=== PATIENT | female | born 1965 | race Caucasian/White ===

== ENCOUNTER 2016-08-09 00:54 | Emergency (ER) | payer OTHER ==
[~2016-08-09] VITALS: Ht 160 cm; Wt 53.0 kg
[~2016-08-09 00:54] MED LIST: AZIT250T94 PO; GUAI120011 PO; IBUP-1542 PO; PRED50TA PO; PROM5SYR2 PO; SODI30SP2 NS
[2016-08-09 00:58] VITALS: Ht 160 cm; Wt 53.0 kg
[2016-08-09] MEDS ORDERED: NAPR-688 PO (01:49)
[2016-08-09] MEDS ORDERED: AMOX1TAB10 PO (01:49)
[2016-08-09] MEDS ORDERED: HYDR-906 PO (01:49)
--- NOTE | 2016-08-09 01:58 | ERD ---
ER Documentation Chief Complaint Date/Time DATE: 08/09/16 TIME: 01:56 Chief Complaint cough, runny nose, nasal congestion HPI This 51-year-old female presents emergency room with cough for 4 days as well as runny nose nasal congestion. She says that usually when this starts she will eventually develop bronchitis if not treated with antibiotics. She is having chills but no fevers. She is eating and drinking well. States that she is otherwise healthy. He is having difficulty sleeping because of her cough. She has had no emesis. ROS All systems reviewed and are negative except as per history of present illness. Medications Home Meds Active Scripts Naproxen* (Naproxen*) 500 Mg Tablet, 500 MG PO BID, #20 TAB Prov:MARSHA SABA DO 08/09/16 Hydrocodone/Acetaminophen (Tyler 5-325 Tablet) 1 Each Tablet, 1 EACH PO Q6, #20 TAB Prov:MARSHA SABA DO 08/09/16 Amoxicillin/Potassium Clav (Amox-Clav 875-125 mg Tablet) 875-125 mg Tab, 1 TAB PO BID, #20 TAB Prov:MARSHA SABA DO 08/09/16 Promethazine HCl/Codeine (Prometh-Codein 6.25-10 mg/5 ml) 5 Ml Syrup, 5 ML PO QHS, #4 OZ Prov:MIKEL BRADY PA-C 12/24/15 Azithromycin* (Zithromax*) 250 Mg Tablet, 250 MG PO DAILY for 5 Days, #6 TAB Prov:MIKEL BRADY PA-C 12/24/15 Prednisone* (Prednisone*) 50 Mg Tablet, 50 MG PO DAILY, #5 TAB Prov:MIKEL BRADY PA-C 12/24/15 Ibuprofen* (Motrin*) 600 Mg Tab, 600 MG PO Q6H Y for PAIN AND OR ELEVATED TEMP, #30 TAB Prov:CAS RENDON NP 12/19/15 Sodium Chloride (Saline Nasal Hamilton) 30 Ml Hamilton, 2 SPRAYS NS Q2H Y for NASAL CONGESTION, #1 BOTTLE Prov:CAS RENDON NP 12/19/15 Guaifenesin (Mucinex) 1,200 Mg Tab.er.12h, 1200 MG PO Q12, #20 TAB Prov:CAS RENDON NP 12/19/15 Allergies Allergies: Coded Allergies: No Known Allergy (Unverified , 12/19/15) PMhx/Soc History of Surgery: Yes (Partial Hysterectomy) Anesthesia Reaction: No Hx Neurological Disorder: No Hx Respiratory Disorders: No Hx Cardiac Disorders: No Hx Psychiatric Problems: No Hx Miscellaneous Medical Probl: Yes (sinus infections) Hx Alcohol Use: No Hx Substance Use: No Hx Tobacco Use: No Smoking Status: Never smoker Physical Exam Vitals Vital Signs Date Time Temp Pulse Resp B/P Pulse Ox O2 Delivery O2 Flow Rate FiO2 08/09/16 00:58 98.4 77 20 124/72 100 Physical Exam Const: [] Mild distress, appears uncomfortable Head: Atraumatic Eyes: Normal Conjunctiva ENT: Normal External Ears, Nose and Mouth., Oropharynx within normal limits , tympanic membranes clear bilaterally Neck: Full range of motion..~ No meningismus. Resp: Clear to auscultation bilaterally, coughs on exam Cardio: Regular rate and rhythm, no murmurs Procedures/MDM Acute bronchitis in a 51-year-old female please believe her request for antibiotics because she does develop bacterial infections is reasonable in this case. She does have significant cough. I am going to discharge her with Augmentin as well as naproxen for anti-inflammatory and a few Tyler for the discomfort she has preventing her from sleep. Primary care follow-up in 2-3 days and return precautions to ER. Departure Diagnosis: Primary Impression: Bronchitis Condition: Stable Patient Instructions: Bronchitis, Antiobiotic Treatment (Adult) Additional Instructions: Call your primary care doctor TOMORROW for an appointment during the next 2-3 days.See the doctor sooner or return here if your condition worsens before your appointment time. MARSHA SABA DO Aug 09, 2016 01:58
== END 2016-08-09 02:10 | disposition home or self-care (01) ==
LOC: FTE 00:54
DX: J20.9 Acute bronchitis, unspecified (principal)
CPT/HCPCS: 99284

== ENCOUNTER 2016-11-04 04:27 | Emergency (ER) | END 2016-11-04 04:56 | disposition home or self-care (01) | DX: R05 Cough (principal); R09.82 Postnasal drip; R40.2412 Glasgow coma scale score 13-15, at arrival to emergency department ==